=== PATIENT | female | born 1955 | race Native Hawaiian/Other Pacific Islander ===

== ENCOUNTER 2024-11-27 13:31 | Outpatient (AMB) | payer MEDICARE, MEDICAID, SELFPAY ==
--- NOTE | 2024-11-27 13:38 | A.OFFVIS_ITS ---
Intake Visit Reasons: 3 months follow up Accompanied by: Sister Allergies No Known Allergies Allergy (Verified 11/27/24 13:43) Medication List - Last Reconciled 11/27/24 by Hermila Wilcox CNP anastrozole 1 mg PO DAILY atorvastatin 80 mg PO DAILY ezetimibe 10 mg PO DAILY sertraline 25 mg PO DAILY HPI Comments Details: 69-year-old woman with memory problems beginning around 2018, at which time she moved in with her older sister. Memory decline became more noticeable and she started to have some visual and auditory hallucinations after fall resulting in R shoulder fx in 02/2024. She was here with her sister. Symptoms have gotten worse since around 08/2024, at which time she began refusing to take all her medications. The only medication her sister was trying to give her anymore was sertraline 25mg, which she has taken regularly for about 1 month. She sister noted that she was having more visual and auditory hallucinations, speaking to things or people that were not there, which sometimes made her agitated. Sleep at night was okay. No recent falls. COUNT INCLUDES [facility] Medical History (Updated 11/27/24 @ 13:42 by Hermila Wilcox CNP) Alzheimer dementia Review of Systems Const Denies chills, Denies daytime sleepiness, Denies difficulty sleeping, Denies fatigue, Denies fever(s), Denies frequent falls, Denies headache(s), Denies increased appetite, Denies poor appetite, Denies snoring, Denies weakness, Denies weight gain and Denies weight loss Eyes Denies loss of vision ENT Denies vertigo, Denies dizziness, Denies headache(s) and Denies neck pain Card Denies chest pain at rest, Denies chest pain with activity, Denies syncope, Denies leg edema, Denies palpitations, Denies dyspnea and Denies dyspnea on exertion Resp Denies cough, Denies dyspnea, Denies dyspnea on exertion and Denies snoring GI Denies abdominal pain, Denies constipation, Denies heartburn, Denies diarrhea and Denies nausea Denies urinary frequency, Denies urinary incontinence and Denies urinary urgency Musc Denies abnormal gait, Denies back pain, Denies myalgias, Denies arthralgias, Denies neck pain, Denies numbness and Denies tingling Neuro Denies abnormal gait, Denies vertigo, Denies dizziness, Denies syncope, Denies frequent falls, Denies headache(s), Denies lack of coordination, Denies loss of vision, Reports memory loss, Denies numbness, Denies Other visual disturbances, Denies restless legs, Denies seizure-like activity, Denies tingling, Denies paresthesias, Denies tremor(s) and Denies weakness Psych Reports anxiety, Reports depression, Reports auditory hallucinations, Reports memory loss and Reports visual hallucinations Endo Denies fatigue and Denies palpitations Physical Exam Const Other: General Appearance:? normal, in no acute distress. Heart:? S1, S2 normal, no murmurs. Lungs:? clear anteriorly and posteriorly. Musculoskeletal:? normal. Extremities:? no edema. Psych:? alert, as below. Neuro Other: Abnormal Neurological Findings:?MMSE 04/09. She was restless, talking to hers elf, pacing around the office and into the hermosillo. She was unable to tell me her age, birthday, or who she was here with. She was not cooperative with full exam. Mental Status: alert, as below. Cranial Nerves: Pupils are equal, round, and reactive to light. External ocular muscles are intact. Visual stovall are full, no ptosis. Face is symmetrical, no facial weakness or droop. Facial sensations are normal. Tongue protrudes in midline. Palate elevates symmetrically. Shoulder shrugging is normal Motor Examination: Normal muscle tone, bulk and strength. Sensory Exam: ... Coordination: No ataxia. No titubation. Gait Exam: Within normal limits. Extrapyramidal System: No tremor, rigidity with normal facial expressions. No bradykinesia. No bradyphrenia. Normal arm swing and posture. No propulsion or retropulsion. Speech: Normal. MMSE Level of Consciousness: Alert. Orientation: Does not know correct year, month, date, day and season. Does not know correct city, county and state. Does not know correct location and floor. Registration: Able to register 3 objects. Attention: Unable to do serial 7's. Recall: Able to recall 0 out of 3 objects. Language: Normal spontaneous speech, fluency, repetition, naming, comprehension, reading, and writing. Total Score: 1230. Results Reviewed Results Reviewed: 02/26/23 MRI shows mild diffuse atrophy, with slight progression from 07/03/18 02/17/23 EEG low folatge fast record Assessment & Plan Assessment & Plan (1) Alzheimer dementia: Code(s): G30.9 - Alzheimer's disease, unspecified; F02.80 - Dementia in other diseases classified elsewhere, unspecified severity, without behavioral disturbance, psychotic disturbance, mood disturbance, and anxiety Category: Medical Qualifiers: Alzheimer's disease onset: unspecified onset Dementia severity: unspecified severity Dementia behavioral or psychological symptom: with mood disturbance Qualified Code(s): G30.9 - Alzheimer's disease, unspecified; F02.83 - Dementia in other diseases classified elsewhere, unspecified severity, with mood disturbance Plan: Continue sertraline 25mg 1 tablet daily. Start quetiapine 25mg 1/2 tablet twice a day, use/side effects reviewed. Reviewed labs ordered r/o metabolic or infectious process. Orders: Orders UA CC w/rflx Micro + Cult Today F0.83 - Dementia in other diseases classified elsewhere, unspecified severity, with mood disturbance, G30.9 - Alzheimer's disease, unspecified Complete Blood Count Auto Diff Today F0.83 - Dementia in other diseases classified elsewhere, unspecified severity, with mood disturbance, G30.9 - Alzheimer's disease, unspecified Basic Metabolic Panel Today F0.83 - Dementia in other diseases classified elsewhere, unspecified severity, with mood disturbance, G30.9 - Alzheimer's disease, unspecified Medications: New quetiapine 12.5 mg (1/2 x 25 mg) PO BID 30 tabs 2RF 30 days Coding Level of Care Code Est Pt Level 4 (34342) Diagnoses Alzheimer's dementia with mood disturbance, unspecified dementia severity, unspecified timing of dementia onset G30.9; F02.83 Alzheimer's disease onset: unspecified onset Dementia severity: unspecified severity Dementia behavioral or psychological symptom: with mood disturbance
--- OUTSIDE RECORDS SUMMARY | 2024-11-27 14:46 | XMS_ITS | Encounter Summary ---
Author Organization [employer] Address [address] [facility] 7t [place] [address] Care Team Providers Care Bond Analyst Name Role Phone Jaylan Gagnon Unassigned Primary Care Provider U tran Day Bia Unavailable Laura Jacobs Unavailable [phone] Kera Grullon Unavailable Dayton Fraser LL Unavailable Capo Sarmiento [facility] Unavailable Josi Lundberg Primary Care Provider [phone] Yunier Preston MD Unavailable [phone] Encounter Details Date Type Department Care Team (Late st Contact Info) Description 01/27/[address] [address] PcpJaylan Unassigned Social History Tobacco Use Types Packs/Day Years Used Date Smoking Tobacco: Never Passive Smoke Exposure: Never Smokeless Tobacco: Never Alcohol Use Standard Drinks/Week Comments Never 0 (1 standard drink = 0.6 oz pur e alcohol) PHQ-2 Answer Date Recorded Patient Health Questionnaire-2 Score 0 03/29/2022 Housing Stability Answer Date Recorded What is your housing situation today? I have trish quintanilla 01/27/[address] you li ve. Do you have problems with any of the following? None of the above 01/27/2023 Food Insecurity Answer Date Recorded Within the past 12 months, y ou worried that your food would run out before you got money to buy more: Never True 01/27/2023 Within the past 12 months,th e food you bought just didn't last and you didn't have enough money to get more: Never True Transportation Answer Date Recorded In the past 12 months, has l ack of transportation kept you from medical appts, meetings, work or from getting things needed for daily living? No 01/27/2023 Utilities Answer Date Recorded In the past 12 months, has t he electric, gas, oil or water company threatened to shut off services in your home? No 01/27/2023 Depression Answer Date Recorded Patient Health Questionnaire-2 Score 0 03/29/2022 Comments Unknown Sex and Gender Information Value Date Recorded Sex Assigned at Female 03/29/2022 10:50 AM EST Legal Sex Female 8:39 PM EST Gender Identity Female 02/19/2022 8:39 PM EST Sexual Orientation Straight 02/19/2022 8: 39 PM EST documented as of this encounter Plan of Treatment Upcoming Encounters Date Type Department Care Team (Late st Contact Info) Description 12/27/2024 9:15 AM EDT Office Visit [facility] [address] [place] [phone] Capo Sarmiento [address] [address] documented as of this encounter Visit Diagnoses Not on filedocumented in this encounter Care Teams Bond Analyst Relationship Specialty Start Date End Date Jaylan Gagnon Unassigned PCP - General Family Medicine 08/04/22 05/11/23 Josi Lundberg FNP [address] [place] [address] PCP - General Family Medicine 05/12/23 Bia Day [address] [place] [address] 11/24/22 04/12/23 Laura Jacobs [address] [place] [address] 12/14/22 12/13/23 Kera Grullon [address] [place] [address] 01/04/23 10/25/23 Dayton Fraser LLD [address] [place] [address] Dentist 04/14/[address] [place] [address] Dental Varnish Filterer 04/14/23 Yunier Preston MD [address] [place] [address] Ophthalmology 12/07/23 Dr. Li Measurement Specialist 05/25/22 Dr. Hernandez Medical Oncologist 05/25/22 Dr. Duc Rhodes Physical Therapist 05/25/22 Dr. Mihaela Stein [facility] [address] [place] [address] Neurology 01/10/24 documented as of this encounter
--- OUTSIDE RECORDS SUMMARY | 2024-11-27 14:46 | XMS_ITS | Clinical Summary ---
Author Organization [facility] Address [address] [place] [address] Phone Care Team Providers Care Major Assembly Lineman Name Role Phone Josi Lundbergcarter TEJADA Primary Care Provider [phone] Allergies No known active allergies Medications atorvastatin (LIPITOR) 40 MG tablet Take 80 mg by mouth daily. 08/04/2021 Active donepeziL (ARICEPT) 23 mg Tab Take 23 mg by mouth daily. 08/14/2021 Active ezetimibe (ZETIA) 10 mg tablet Take 10 mg by mouth daily. 08/12/2021 Active b complex vitamins capsule Take 1 capsule by mouth daily. Active aspirin 81 mg chewable tablet Take 81 mg by mouth daily. Active calcium carb/vit D3/minerals (CALCIUM-VITAMI N D ORAL) Take by mouth. Active Active Problems Problem Noted Date Diagnosed Date Right lower lobe lung mass 09/17/2021 Assessment & Plan (09/17/2021 9:58 AM EDT): Lung mass concerning for malignancy given previous uterine cancer history. We will begin diagnostic work up with a PET CT and pulmonary function tests. Social History Tobacco Use Types Packs/Day Years Used Date Smoking Tobacco: Never Smokeless Tobacco: Never Alcohol Use Standard Drinks/Week Comments Not Currently 0 (1 standard drink = 0.6 oz pur e alcohol) Education Answer Date Recorded Are you interested in more education? Not on donald e 08/06/2022 Are you concerned about learning? Not on file 08/06/2022 No 08/06/2022 No 08/06/2022 Digital Access Answer Date Recorded No 09/01/2022 No 09/01/2022 Reliable internet access at home? Not on file 09/01/2022 Device with a working camera? Not on file Comments Unknown Sex and Gender Information Value Date Recorded Sex Assigned at Not on file Legal Sex Female 11:49 AM EST Gender Identity Not on file Sexual Orientation Not on file Last Filed Vital Signs Vital Sign Reading Time Taken Comments Blood Pressure 112/68 10/16/2021 8:40 AM EDT Pulse 65 10/16/2021 8:40 AM EDT Temperature 36.8 C (98.2 F) 10/16/2021 8:40 AM EDT Respiratory Rate 16 09/17/2021 9:17 AM EDT Oxygen Saturation 96% 10/16/2021 8:40 AM EDT Inhaled Oxygen Concentration - - Weight 66.2 kg (146 lb) 10/30/2021 10:53 AM EDT Height 152.4 cm (5') 09/17/2021 9:17 AM EDT Body Mass Index 28.51 09/17/2021 9:17 AM EDT Plan of Treatment Health Maintenance Due Date Last Done Comments Adult Td,Tdap Booster 1957 DEPRESSION SCREENING 1969 HEPATITIS C SCREENING 1975 COLOGUARD 2002 COLONOSCOPY 2002 COLORECTAL CANCER SCREENING 2002 FIT TEST 2002 FOBT 2002 SIGMOIDOSCOPY 2002 VIRTUAL COLONOSCOPY 2002 PNEUMOCOCCAL VACCINES (50+ years) (1 of 1 - PCV) 2007 ZOSTER VACCINES (1 of 2) 2007 OSTEOPOROSIS SCREENING INITIAL (ONE-TIME) 2022 COVID-19 VACCINE ( season) 2024 01/04/2024, 01/21/2023, 02/03/2022, Additional history exists MAMMOGRAM 11/14/2025 11/15/2023, 1210/2021, 03/17/2022 LIPID PANEL 05/19/2028 05/19/2023 RSV VACCINE Completed 04/06/2024 SMOKING STATUS SCREENING (Once After 26 Yrs) Completed 05/08/2024 HEPATITIS A VACCINES Aged Out No long er eligible based on patient's age to complete this topic HIB VACCINES Aged Out No longer eligi ble based on patient's age to complete this topic MENINGOCOCCAL VACCINES (ACWY) Aged Out No longer eligible based on patient's age to complete this topic MENINGOCOCCAL VACCINES (B) Aged Out N o longer eligible based on patient's age to complete this topic Medical Devices Not on file Insurance MEDICARE PART A & B [facility] MEDICARE PART A & B [place] [facility] A & [place] [facility] MEDIC[facility] PART A & B Member Subscriber Plan / Payer (Ef fective 2020-) Name:John Campbell Member ID:[id number] Relation to Subscriber:Self Name:John Campbell Subscriber ID:[id number] Payer ID:[id number] Group ID:Not on file Type:Medicare Address: [facility] [employer] [facility] [address] [place] [address] [place] A & B Member Subscriber Plan / Payer (Ef fective 2020-) Name:John Campbell Member ID:[id number] Relation to Subscriber:Self Name:John Campbell Subscriber ID:[id number] Payer ID:[id number] Group ID:Not on file Type:Medicare Address: [facility] [employer] [facility] [address] [place] [address] [place] [address]HEALTH MEDICARE PART A & B [place] PART A & B [facility] Care Teams Major Assembly Lineman Relationship Specialty Start Date End Date Josi Lundberg FNP [address] [place] [address] [email or web address] PCP - General Nurse Practitioner 02/21/24 Additional Source Comments The information contained in this document represents components of the legal health record. It is not the complete legal health record.[facility]
== END 2024-11-27 14:02 | disposition home or self-care (01) ==
LOC: HO.HSM 13:31
PROVIDERS: PCP Family Medicine; Visit Provider Registered Nurse
DX: G30.9 Alzheimer's disease, unspecified (principal); F02.83 Dementia in other diseases classified elsewhere, unspecified severity, with mood disturbance
CPT/HCPCS: 99214

== ENCOUNTER → 2024-11-27 13:31 | Outpatient (BNVA) | payer MEDICARE, MEDICAID, SELFPAY | PROVIDERS: PCP Family Medicine; Visit Provider Registered Nurse | DX: G30.9 Alzheimer's disease, unspecified (principal); F02.83 Dementia in other diseases classified elsewhere, unspecified severity, with mood disturbance; Z79.899 Other long term (current) drug therapy | CPT/HCPCS: 99212 ==

== ENCOUNTER 2024-12-28 09:46 | Outpatient (AMB) | payer MEDICARE, MEDICAID, SELFPAY ==
--- OUTSIDE RECORDS SUMMARY | 2024-12-27 09:15 | XMS_ITS | Encounter Summary ---
Author Organization [employer] Address [address] [facility] 7t [place] [address] Care Team Providers Care Demolition Expert Name Role Phone Dayton Fraser DMD Unavailable Unavailable Capo Sarmiento [facility] Unavailable Josi Lundberg Primary Care Provider [phone] Yunier Preston MD Unavailable [phone] Reason for Visit * Reason Comments Routine Cleaning Dental Exam Encounter Details Date Type Department Care Team (Late st Contact Info) Description 12/27/2024 9:15 AM EDT [facility] [address] [place] [phone] [facility] [address] [place] [address] Social History Tobacco Use Types Packs/Day Years Used Date Smoking Tobacco: Never Passive Smoke Exposure: Never Smokeless Tobacco: Never Alcohol Use Standard Drinks/Week Comments Never 0 (1 standard drink = 0.6 oz pur e alcohol) PHQ-2 Answer Date Recorded Patient Health Questionnaire-2 Score 0 03/29/2022 Alcohol Answer Date Recorded How often do you have a drink containing alcohol ? 0 06/28/2023 How many drinks containing a lcohol do you have on a typical day when you are drinking? 0 06/28/2023 How often do you have six or more drinks on one occasion? 0 06/28/2023 Housing Stability Answer Date Recorded What is your housing situation today? I have trish quintanilla 05/19/[address] you li ve. Do you have problems with any of the following? None of the above 05/19/2023 Food Insecurity Answer Date Recorded Within the past 12 months, y ou worried that your food would run out before you got money to buy more: Never True 05/19/2023 Within the past 12 months,th e food you bought just didn't last and you didn't have enough money to get more: Never True 11/2023 Transportation Answer Date Recorded In the past 12 months, has l ack of transportation kept you from medical appts, meetings, work or from getting things needed for daily living? No 05/19/2023 Intimate Partner Violence Answer Date R ecorded Within the last year, have y ou been afraid of your partner or ex-partner? 2 06/28/2023 Within the last year, have y ou been humiliated or emotionally abused in other ways by your partner or ex-partner? 2 Within the last year, have y ou been kicked, hit, slapped, or otherwise physically hurt by your partner or ex-partner? 2 06/28/2023 Within the last year, have y ou been raped or forced to have any kind of sexual activity by your partner or ex-partner? 2 06/28/2023 Utilities Answer Date Recorded In the past 12 months, has t he electric, gas, oil or water company threatened to shut off services in your home? No 05/19/2023 Depression Answer Date Recorded Patient Health Questionnaire-2 Score 0 05/19/2023 Internet Access Answer Date Recorded Internet Access Q1 Yes 02/10/2024 Internet Access Q2 Not on file 02/10/2024 Comments Unknown Sex and Gender Information Value Date Recorded Sex Assigned at Female 03/29/2022 10:50 AM EST Legal Sex Female 8:39 PM EST Gender Identity Female 02/19/2022 8:39 PM EST Sexual Orientation Straight 02/19/2022 8: 39 PM EST documented as of this encounter Progress Notes * Capo Sarmiento, [facility] - 12/27/2024 9:15 AM EDT Patient presents for prophy PE with Dr Nuñez 06/21/24 SBIRT 09/14/23 Medical history reviewed with sister. Patient has severe dementia cc: Patient/Sister stated that Dr Solano agreed a 3MRC is best, still no SFS but patient and sister are aware of out of pocket payments Dr Cintron stated that risks outweigh the benefits for removal of 1 and 16 Patients sister states that dementia of patient has increased rapidly. She was unable to open forany procedures today. Will have patient schedule back with to see if just a PE will be better. No treatment completed today. *Sister also stated she is no longer seeing Dr Solano because of dementia and will only see him if directed by Dr Nuñez NEXT DENTIST VISIT: PE with Dr Nuñez Recall documented in this encounter Plan of Treatment Scheduled Orders Name Type Priority Associated Diagnoses Orde r Schedule BITEWINGS - 4 RADIOGRAPHIC IMAGES Dental Routine 1 Occurrence s starting 12/27/2024 PERIODIC ORAL EVALUATION - ESTABLISHED PATIENT Dental Routine 1 Occurren cedric starting 12/27/2024 CASE PRESENTATION, DETAILED AND EXTENSIVE TREATMENT PLANNING Dental Routine 1 Occurrences starting 12/27/2024 documented as of this encounter Procedures Procedure Name Priority Date/Time Associated Diagnosis Comments NO CHARGE VISIT Routine 12/27/2024 9:15 AM EDT documented in this encounter Visit Diagnoses Not on filedocumented in this encounter Care Teams Demolition Expert Relationship Specialty Start Date End Date Josi Lundberg FNP [address] [place] [address] PCP - General Family Medicine 05/12/23 Dayton Fraser DMD Dentist 04/14/23 Capo Sarmiento [facility] [address] [place] [address] Dental Lab Manager 04/14/23 Yunier Preston MD [address] [place] [address] Ophthalmology 12/07/23 Dr. Li Harvest Worker 05/25/22 Dr. Hernandez Medical Oncologist 05/25/22 Dr. Duc Rhodes Physical Therapist 05/25/22 Dr. Mihaela Stein [facility] [address] [place] [address] Neurology 01/10/24 documented as of this encounter
--- OUTSIDE RECORDS SUMMARY | 2024-12-28 10:21 | XMS_ITS | Encounter Summary ---
Author Organization [employer] Address [address] [facility] 7t [place] [address] Care Team Providers Care Field Hockey Coach Name Role Phone Jaylan Gagnon Unassigned Primary Care Provider U Laura Thompson Unavailable [phone] Kera Grullon Unavailable Dayton Fraser DMD Unavailable Unavailable Capo Sarmiento [facility] Unavailable Josi Lundberg Primary Care Provider Yunier Preston MD Unavailable [phone] Encounter Details Date Type Department Care Team (Late st Contact Info) Description 05/04/2023 Abstract [facility] [address] [place] [address] Sujit Cintron DDS [address] [place], [place] [id number] Social History Tobacco Use Types Packs/Day Years Used Date Smoking Tobacco: Never Passive Smoke Exposure: Never Smokeless Tobacco: Never Alcohol Use Standard Drinks/Week Comments Never 0 (1 standard drink = 0.6 oz pur e alcohol) PHQ-2 Answer Date Recorded Patient Health Questionnaire-2 Score 0 03/29/2022 Housing Stability Answer Date Recorded What is your housing situation today? I have trish socorro 01/27/[address] you li [...] as of this encounter Plan of Treatment Not on file documented as of this encounter Visit Diagnoses Not on filedocumented in this encounter Care Teams Field Hockey Coach Relationship Specialty Start Date End Date PcpJaylan Unassigned PCP - General Family Medicine 08/04/22 05/11/23 Josi Lundberg FNP [address] [place] [address] PCP - General Family Medicine 05/12/23 Laura Jacobs [address] [place] [address] 12/14/22 12/13/23 Kera Grullon [address] [place] [address] 01/04/23 10/25/23 Dayton Fraser DMD [address] [place] [address] Dentist 04/14/[address] [place] [address] Dental Truck Driver Helper 04/14/23 Yunier Preston MD [address] [place] [address] [place] [address] Ophthalmology 12/07/23 Dr. Li Deli Cook 05/25/22 Dr. Hernandez Medical Oncologist 05/25/22 Dr. Duc Rhodes Physical Therapist 05/25/22 Dr. Mihaela Stein [facility] [address] [place] [address] Neurology 01/10/24 documented as of this encounter
--- OUTSIDE RECORDS SUMMARY | 2024-12-28 10:21 | XMS_ITS | Encounter Summary ---
Author Organization [employer] Address 75 [facility] 7t [place] [address] Care Team Providers Care Operations Inspector Name Role Phone Dayton Fraser DMD Unavailable Unavailable Capo Sarmiento [facility] Unavailable Josi Lundberg Primary Care Provider [phone] Yunier Preston MD Unavailable [phone] Encounter Details Date Type Department Care Team (Late st Contact Info) Description 02/20/2024 Telephone [facility] [address] [place] [address] Josi Lundberg FNP 8 [place], [place] [id number] Social History Tobacco Use Types Packs/Day Years [...] the past 12 months, has t he [employer], gas, oil or water [employer] threatened to shut off services in your [...] PM EST documented as of this encounter Miscellaneous Notes * Telephone Encounter - Tressa Valdovinos LPN - 02/21/2024 11:52 AM EST Spoke to pt [employer] mother. Stated concern for pt in there home. Stated they have called elder servicesabout this and are awaiting call back. Stated pt fired [employer]. Just making provider aware of this . Informed no information can be given as neither IN [employer] or bobbin coil winder mother is on ZULEIKA. * Telephone Encounter - Treasure Tobias - 02/20/2024 5:42 PM EST Pt IN [employer] and the IN [employer] MEMBER s mother called and have some concerns about the Pt living situation and would like to speak to the care team to address these. Call back # [phone] documented in this encounter Plan of Treatment Not on file documented as of this encounter Visit Diagnoses Not on filedocumented in this encounter Care Teams Operations Inspector Relationship Specialty Start Date End Date Josi Lundberg FNP [address] [place] [address] PCP - General Family Medicine 05/12/23 Dayton Fraser DMD Dentist 04/14/23 Capo Sarmiento [facility] [address] [place] [address] Dental Director Of Operations Home Health 04/14/23 Yunier Preston MD [address] [place] [address] Ophthalmology 12/07/23 Dr. Li Furniture Builder 05/25/22 Dr. Hernandez Medical Oncologist 05/25/22 Dr. Duc Rhodes Physical Therapist 05/25/22 Dr. Mihaela Stein [facility] [address] [place] [address] Neurology 01/10/24 documented as of this encounter
--- OUTSIDE RECORDS SUMMARY | 2024-12-28 10:21 | XMS_ITS | Encounter Summary ---
Author Organization [employer] Address [address] [facility] 7t [place] [address] Care Team Providers Care Apartment Maintenance Name Role Phone Dayton Fraser DMD Unavailable Unavailable Capo Sarmiento [facility] Unavailable Josi Lundberg Primary Care Provider Yunier Preston MD Unavailable [phone] Encounter Details Date Type Department Care Team ([facility] st Contact Info) Description 02/20/2024 Orders Only [facility] [address] [place] [phone] Joy Lagunas LPN 102 [place], [place] [phone] Social History Tobacco Use Types Packs/Day Years [...] the past 12 months, has t he [employer], gas, oil or water [employer] threatened to shut off services in your [...] on filedocumented in this encounter Care Teams Apartment Maintenance Relationship Specialty Start Date End Date Josi Lundberg FNP [address] [place] [address] PCP - General Family Medicine 05/12/23 Dayton Fraser DMD Dentist 04/14/23 Capo Sarmiento [facility] [address] [place] [address] Dental Finish Specialist 04/14/23 Yunier Preston MD [address] [place] [address] Ophthalmology 12/07/23 Dr. Li Spiritual Advisor 05/25/22 Dr. Hernandez Medical Oncologist 05/25/22 Dr. Duc Rhodes Physical Therapist 05/25/22 Dr. Mihaela Stein [facility] [address] [place] [address] Neurology 01/10/24 documented as of this encounter
--- OUTSIDE RECORDS SUMMARY | 2024-12-28 10:21 | XMS_ITS | Encounter Summary ---
Author Organization [employer] Address 75 [facility] 7t [place] [address] Care Team Providers Care Butter Fat Tester Name Role Phone Jaylan Gagnon Unassigned Primary Care Provider U Bia Tristan Unavailable Laura Jacobs Unavailable [phone] Kera Grullon Unavailable Dayton Fraser DMD Unavailable Unavailable Capo Sarmiento [facility] Unavailable Josi Lundberg Primary Care Provider [phone] Yunier Preston MD Unavailable [phone] Encounter Details Date Type Department Care Team (Late st Contact Info) Description 01/27/2023 Abstract [facility] [address] [address] PcpJaylan Unassigned Social History Tobacco Use Types Packs/Day Years Used Date Smoking Tobacco: Never Passive Smoke Exposure: Never Smokeless Tobacco: Never Alcohol Use Standard Drinks/Week Comments Never 0 (1 standard drink = 0.6 oz pur e alcohol) PHQ-2 Answer Date Recorded Patient Health Questionnaire-2 Score 0 03/29/2022 Housing Stability Answer Date Recorded What is your housing situation today? I have trishpalomo [place]anilla 01/27/[address] you [...] on filedocumented in this encounter Care Teams Butter Fat Tester Relationship Specialty Start Date End Date Jaylan Gagnon Unassigned PCP - General Family Medicine 08/04/22 05/11/23 Josi Lundberg FNP [address] [place] [address] PCP - General Family Medicine 05/12/23 Bia Day [address] [place] [address] 11/24/22 04/12/23 JacobsLaura 102 [place] [address] 12/14/22 12/13/23 Kera Grullon 119 [place] [address] 01/04/23 10/25/23 Dayton Fraser DMD 119 [facility] [place] [address] Dentist 04/14/23 Capo Sarmiento [facility] 102 [place] [address] Dental Car Hiker 04/14/23 Yunier Preston MD [address] [place] [address] [place] [address] Ophthalmology 12/07/23 Dr. Li Flow Machine Operator 05/25/22 Dr. Hernandez Medical Oncologist 05/25/22 Dr. Duc Rhodes Physical Therapist 05/25/22 Dr. Mihaela Stein [facility] [address] [place] [address] Neurology 01/10/24 documented as of this encounter
--- OUTSIDE RECORDS SUMMARY | 2024-12-28 10:21 | XMS_ITS | Encounter Summary ---
Author Organization [employer] Address [address] [place] [address] 7t [place] [address] Care Team Providers Care Recoverer Name Role Phone Laura Jacobs Unavailable [phone] Dayton Fraser DMD Unavailable Unavailable Capo Sarmiento [facility] Unavailable Josi Lundberg Primary Care Provider Yunier Preston MD Unavailable [phone] Reason for Referral * Imaging (Routine) - Canceled Specialty Diagnoses / Procedures Referred By Herve ni Referred To Contact Radiology Diagnoses Abnormality of left breast on screening mammogram Procedures US Axilla Left (Breast) Josi Lundberg FNP [address] [place] [address] Phone: tel: fax: Referral ID Status Reason Start Date Expiration Date V isits Requested Visits Authorized [id number] Canceled 11/24/2023 11/23/2024 1 1 * Consultation (Routine) - Canceled Specialty Diagnoses / Procedures Referred By Herve ni Referred To Contact Interventional Radiology Diagnoses Abnormality of left breast on screening mammogram Josi Lundberg FNP [address] [place] [address] Phone: tel: fax: Referral ID Status Reason Start Date Expiration Date Visits Requested Visits Authorized [id number] Canceled Specialty Services Required 11/24/2023 11/23/2024 1 1 Encounter Details Date Type Department Care Team (Late st Contact Info) Description 11/24/2023 Orders Only [facility] [address] [place] [address] Josi Lundberg FNP 8 [place] [address] Abnormal mammogram (Primary Dx); Abnormality of left breast on screening mammogram Social History Tobacco Use Types Packs/Day Years [...] Recorded Patient Health Questionnaire-2 Score 0 05/19/2023 Comments Unknown Sex and Gender Information Value Date Recorded Sex Assigned at Female 03/29/2022 10:50 AM EST Legal Sex Female 8:39 PM EST Gender Identity Female 02/19/2022 8:39 PM EST Sexual Orientation Straight 02/19/2022 8: 39 PM EST documented as of this encounter Plan of Treatment Scheduled Orders Name Type Priority Associated Diagnoses Orde r Schedule US Axilla Left (Breast) Imaging Routine Abnormality of left breast on screening mammogram Expected: 11/24/2023 (Approximate), Expires: 11/23/2024 Scheduled Referrals Name Type Priority Associated Diagnoses Order Schedule Referral to Diagnostic Radiology Outpatient Referral Routine Abnormality of left breast on screening mammogram Expected: 11/24/2023 (Approximate), Expires: 11/23/2024 documented as of this encounter Procedures Procedure Name Priority Date/Time Associated Diagnosis Comments BI MAMMOGRAM DIAGNOSTIC LEFT Routine 11/24/2023 2:35 PM EDT documented in this encounter Results * BI Mammogram Diagnostic Left (11/24/2023 2:35 PM EDT) Anatomical Region Laterality Modality Breast Left Mammography 11/24/2023 2:35 PM EDT Narrative 11/24/2023 2:54 PM EDT PROCEDURE: MM Digital Mammo Unilat Left CLINICAL INDICATION: 68 years old Female called back for evaluation of possible one view asymmetry LEFT breast CC view only. COMPARISON: Digital RIGHT mammograms 2019 to a September 29, 2023. TECHNIQUE: Spot compression CC view of the LEFT breast is performed. Full mediolateral view the LEFT breast also obtained. 3D tomosynthesis was utilized. DENSITY: There are scattered areas of fibroglandular density. FINDINGS: Upon compression the apparent asymmetries efface consistent with a confluence of normal structures. IMPRESSION: 1. No mammographic evidence of malignancy. RECOMMENDATION: Annual mammographic screening BI-RADS: 1 (Negative) Lay letter mailed to patient. Computer-aided detection (CAD) was utilized in the interpretation of this study. WSN: [id number] Ordering Physician: Josi Lundberg Dictated By: Carlos Norris MD Dictated Date/Time: 11/24/23 2:51 pm Reviewed By: Carlos Norris MD Signed By: Carlos Norris MD Signed Date/Time: 11/24/23 2:51 pm Transcribed By: SUPRIYA Hand Surgeon Date/Time: 11/24/23 2:46 pm Birads: Procedure Note Donotuseinterpreter, Image - 11/24/2023 PROCEDURE: MM Digital Mammo Unilat Left CLINICAL INDICATION: 68 years old Female called back for evaluation ofpossible one view asymmetry LEFT breast CC view only. COMPARISON: Digital RIGHT mammograms 2019 to a September 29, 2023. TECHNIQUE: Spot compression CC view of the LEFT breast is performed.Full mediolateral view the LEFT breast also obtained. 3D tomosynthesis wasutilized. DENSITY: There are scattered areas of fibroglandular density. FINDINGS: Upon compression the apparent asymmetries efface consistent with aconfluence of normal structures. IMPRESSION: 1. No mammographic evidence of malignancy. RECOMMENDATION: Annual mammographic screening BI-RADS: 1 (Negative) Lay letter mailed to patient. Computer-aided detection (CAD) was utilized in the interpretation of thisstudy. WSN: [id number] Ordering Physician: Josi Lundberg Dictated By: Carlos Norris MD Dictated Date/Time: 11/24/23 2:51 pm Reviewed By: Carlos Norris MD Signed By: Carlos Norris MD Signed Date/Time: 11/24/23 2:51 pm Transcribed By: SUPRIYA Hand Surgeon Date/Time: 11/24/23 2:46 pm Birads: Josi TEJADA IMG BI PROCEDURES Final Result documented in this encounter Visit Diagnoses Diagnosis Abnormal mammogram- Primary Abnormal mammogram, unspecified Abnormality of left breast on screening mammogram documented in this encounter Care Teams Recoverer Relationship Specialty Start Date End Date Josi Lundberg FNP [address] [place] [address] PCP - General Family Medicine 05/12/23 Laura Jacobs 102 [place] [address] 12/14/22 12/13/23 Dayton Fraser DMD 102 [place] [address] Dentist 04/14/23 Capo Sarmiento [facility] [address] [place] [address] Dental Mutual Fund Analyst 04/14/23 Yunier Preston MD [address] [place] [address] Ophthalmology 12/07/23 Dr. Li Conditioner Tumbler 05/25/22 Dr. Hernandez Medical Oncologist 05/25/22 Dr. Duc Rhodes Physical Therapist 05/25/22 Dr. Mihaela Stein [facility] [address] [place] [address] Neurology 01/10/24 documented as of this encounter
--- OUTSIDE RECORDS SUMMARY | 2024-12-28 10:21 | XMS_ITS | Encounter Summary ---
Author Organization [employer] Address 75 [facility] 7t [place] [address] Care Team Providers Care Manager Solution Name Role Phone Laura Jacobs Unavailable [phone] Dayton Fraser DMD Unavailable Unavailable Capo Sarmiento [facility] Unavailable Josi Lundberg Primary Care Provider Yunier Preston MD Unavailable [phone] Encounter Details Date Type Department Care Team (Late st Contact Info) Description 11/28/2023 Orders Only [facility] [address] [place], [place] [phone] Provider, Not In System Social History Tobacco Use Types Packs/Day Years [...] the past 12 months, has t he [employer], gas, oil or water company threatened to [...] on file documented as of this encounter Procedures Procedure Name Priority Date/Time Associated Diagnosis Comments MAMMOGRAPHY Routine 11/15/2023 1:02 PM EDT documented in this encounter Results * Mammography (11/15/2023 1:02 PM EDT) Anatomical Region Laterality Modality Other us Not In System Provider HEALTH MAINTENANCE Edited Result - Final documented in this encounter Visit Diagnoses Not on filedocumented in this encounter Care Teams Manager Solution Relationship Specialty Start Date End Date Jsoi Lundberg FNP [address] [place] [address] PCP - General Family Medicine 05/12/23 Laura Jacobs 102 [place] [address] 12/14/22 12/13/23 Dayton Fraser DMD 102 [place] [address] Dentist 04/14/23 [facility] 102 [place] [address] Dental School Psychologist Assistant 04/14/23 Yunier Preston MD [address] [place] [address] Ophthalmology 12/07/23 Dr. Li Physical Therapy Instructor 05/25/22 Dr. Hernandez Medical Oncologist 05/25/22 Dr. Duc Rhodes Physical Therapist 05/25/22 Dr. Mihaela Stein [facility] [address] [place] [address] Neurology 01/10/24 documented as of this encounter
--- OUTSIDE RECORDS SUMMARY | 2024-12-28 10:21 | XMS_ITS | Encounter Summary ---
Author Organization [employer] Address 75 [facility] 7t [place] [address] Care Team Providers Care Automatic Beading Lathe Operator Name Role Phone Jaylan Gagnon Unassigned Primary Care Provider U Laura Thompson Unavailable [phone] Kera Grullon Unavailable Dayton Fraser DMD Unavailable Unavailable Capo Sarmiento [facility] Unavailable Josi Lundberg Primary Care Provider [phone] Yunier Preston MD Unavailable [phone] Encounter Details Date Type Department Care Team (Late st Contact Info) Description 05/04/2023 Abstract [facility] 102 [place] [address] Sujit Cintron DDS 102 [place], [place] [phone] Social History Tobacco Use Types Packs/Day Years [...] on filedocumented in this encounter Care Teams Automatic Beading Lathe Operator Relationship Specialty Start Date End Date PcpJaylan Unassigned PCP - General Family Medicine 08/04/22 05/11/23 Josi Lundberg FNP 102 [place] [address] PCP - General Family Medicine 05/12/23 Laura Jacobs 102 [place] [address] 12/14/22 12/13/23 Kera Grullon 119 [place] [address] 01/04/23 10/25/23 Dayton Fraser DMD 119 [place] [address] Dentist 04/14/[address] [place] [address] Dental Receivable Executive 04/14/23 Yunier Preston MD [address] [place] [address] [place] [address] Ophthalmology 12/07/23 Dr. Li Fish Warden 05/25/22 Dr. Hernandez Medical Oncologist 05/25/22 Dr. Duc Rhodes Physical Therapist 05/25/22 Dr. Mihaela Stein [facility] [address] [place] [address] Neurology 01/10/24 documented as of this encounter
--- OUTSIDE RECORDS SUMMARY | 2024-12-28 10:22 | XMS_ITS | Encounter Summary ---
Author Organization [employer] Address [address] [place] [address] 7 [place] [address] Care Team Providers Care Division Roadmaster Name Role Phone Jaylan Gagnon Unassigned Primary Care Provider U Bia Tristan Unavailable Laura Jacobs Unavailable [phone] Kera Grullon Unavailable Dayton Fraser DMD Unavailable Unavailable Capo Sarmiento [facility] Unavailable Josi Lundberg Primary Care Provider [phone] Yunier Preston MD Unavailable [phone] Reason for Visit * Reason Onset Date Comments Referral 12/22/2022 Encounter Details Date Type Department Care Team (Late st Contact Info) Description 12/22/[address] [id number] Dallas Baeza FNP Referral Social History Tobacco Use Types Packs/Day Years Used Date Smoking Tobacco: Never Passive Smoke Exposure: Never Smokeless Tobacco: Never Alcohol Use Standard Drinks/Week Comments Never 0 (1 standard drink = 0.6 oz pur e alcohol) PHQ-2 Answer Date Recorded Patient Health Questionnaire-2 Score 0 03/29/2022 Depression Answer Date Recorded Patient Health Questionnaire-2 Score 0 03/29/2022 Comments Unknown Sex and Gender Information Value Date Recorded Sex Assigned at Female 03/29/2022 10:50 AM EST Legal Sex Female 8:39 PM EST Gender Identity Female 02/19/2022 8:39 PM EST Sexual Orientation Straight 02/19/2022 8: 39 PM EST documented as of this encounter Miscellaneous Notes * Telephone Encounter - David Barragan - 12/22/2022 2:05 PM EDT Pt received 3 referrals on 11/29 from Dallas Baeza. The referral for Home Care Medicine specifically, the provider, Karl Sandoval, told the pt that they never received a referral from us. Karl Sandoval told the pt to make the provider (us) aware of this and to see if we could send it again?? CB # is [phone] documented in this encounter Plan of Treatment Not on file documented as of this encounter Visit Diagnoses Not on filedocumented in this encounter Care Teams Division Roadmaster Relationship Specialty Start Date End Date PcpJaylan Unassigned PCP - General Family Medicine 08/04/22 05/11/23 Josi Lundberg FNP 102 [place] [address] PCP - General Family Medicine 05/12/23 Bia Day 102 [place] [address] 11/24/22 04/12/23 Laura Jacobs 102 [place] [address] 12/14/22 12/13/23 Kera Grullon 119 [place] [address] 01/04/23 10/25/23 Dayton Fraser DMD 119 [place] [address] Dentist 04/14/[address] [facility] 102 [place] [address] Dental Personal Care Assistant 04/14/23 Yunier Preston MD [address] [place] [address] Ophthalmology 12/07/23 Dr. Li Rn Hemodialysis 05/25/22 Dr. Hernandez Medical Oncologist 05/25/22 Dr. Duc Rhodes Physical Therapist 05/25/22 Dr. Mihaela Stein [facility] [address] [place] [address] Neurology 01/10/24 documented as of this encounter
--- OUTSIDE RECORDS SUMMARY | 2024-12-28 10:22 | XMS_ITS | Clinical Summary ---
Author Organization [employer] Address [address] [facility] 7t [place] [address] Care Team Providers Care Fresh Food Manager Name Role Phone Dayton Fraser DMD Unavailable Unavailable Capo Sarmiento RD Unavailable Josi Lundberg Primary Care Provider [phone] Yunier Preston MD Unavailable [phone] Allergies No known active allergies Medications * This document contains information received from the source organization and may not represent a complete record from that organization. anastrozole (Arimidex) 1 MG chemo tablet Take 1 mg by mouth in the morning. 2 Active aspirin 81 MG EC tablet daily. 9 Active b complex vitamins capsule Take 1 capsule by mouth in the morning. Active memantine (Namenda) 10 MG tabletIndicatio ns:Alzheimer's Disease Take 1 tablet by mouth 2 times daily. 4 Active atorvastatin (Lipitor) 80 MG tablet Take 1 tablet (80 mg) by mouth Once per day. 90 tablet 3 4 Active Additional Information Patient not taking.Reported on 12/27/2024 ezetimibe (Zetia) 10 MG tablet Take 1 tablet (10 mg) by mouth Once per day. 90 tablet 3 4 Active Additional Information Patient not taking.Reported on 12/27/2024 donepezil (Aricept) 10 MG tablet TAKE 1 TABLET(10 MG) BY MOUTH IN THE MORNING 90 tablet 3 4 Active Additional Information Patient not taking.Reported on 12/27/2024 B Complex Vitamins (B COMPLEX 100 PO) Take 1 tablet by mouth. 2 Active atorvastatin (Lipitor) 80 MG tablet Take 80 mg by mouth Once per day. 2 Active memantine (Namenda) 10 MG tablet Take 10 mg by mouth 2 times daily. 4 Active gabapentin (Neurontin) 300 MG capsule Take 300 mg by mouth. 2 Active oxyCODONE (Roxicodone) 5 MG immediate release tablet Take 5 mg by mouth. 4 Active sertraline (Zoloft) 25 MG tablet Take 25 mg by mouth Once per day. Active QUEtiapine (SEROquel) 25 MG tablet TAKE 1/2 TABLET BY MOUTH TWICE DAILY FOR 30 DAYS 5 Active Active Problems Problem Noted Date Diagnosed Date Dental caries 02/01/2023 Dental abscess 05/24/2022 Right lower lobe lung mass 09/17/2021 Overview (03/29/2022): Last Assessment & Plan: Lung mass concerning for malignancy given previous uterine cancer history. We will begin diagnostic work up with a PET CT and pulmonary function tests. Alzheimer disease 08/12/2021 Solitary pulmonary nodule 08/12/2021 Uterine cancer 01/23/2021 Lymphedema 10/09/2020 Overview (03/30/2022): PT at [facility] w/+ benefit Assessment & Plan (03/30/2022 6:55 PM EST): Improved lower extremity edema with daily compression stockings and night with use of pneumatic pump. Patient friend searching for PATIENT ASSESSMENT COORDINATOR to assist pt at home. . Will refer to [facility] to see if there is staff Support to assist in ADLs and pt use of compression devices to improve LE edema. Cerebrovascular disease 11/21/2018 Overview (03/29/2022): Note: MRI in 2019 showed hx of tiny stroke , pt on statin Mild cognitive impairment 11/21/2018 Overview (03/29/2022): Note: Per Neuro, mild cognitive impairment with hx of tiny stroke evidenced on MRI. Lab work reassurring. Mixed hyperlipidemia 11/21/2018 Acquired absence of both cervix and uterus 05/12 Overview (03/29/2022): Note: Done in 2014 due to cervical cancer Encounters Date Type Department Care Team Description 12/27/2024 9:15 AM EDT Office Visit [facility] [address] [place] [address] Capo Sarmiento RDH 12/05/2024 12:30 PM EDT Community Care Management [facility] [address] [address] Melissa Montejo 10/02/2024 Telephone [facility] [address] [place] [address] Josi Lundberg FNP 09/28/2024 Telephone [facility] [address] [address] Josi Lundberg FNP from Last 3 Months Immunizations Immunization Administration Dates Next Due Influenza High-dose Quadrivalent Preservative Fr ee 01/21/2023 Influenza injectable quadrivalent preservative f ree 02/03/2022,12/18/2020 Influenza, Unspecified 01/11/2020 Moderna Covid-19 Vaccine 12+ 01/21/2023,08/02/19 21 TD (adult), 2 Lf tetanus tox oid, preservative free, adsorbed 11/07/2018 Social History Tobacco Use Types Packs/Day Years Used Date Smoking Tobacco: Never Passive Smoke Exposure: Never Smokeless Tobacco: Never Tobacco Cessation:Counseling Given: Not Answered Alcohol Use Standard Drinks/Week Comments Never 0 [...] Orientation Straight 02/19/2022 8: 39 PM EST Last Filed Vital Signs Vital Sign Reading Time Taken Comments Blood Pressure 90/57 09/25/2024 9:45 AM EDT Pulse 50 09/25/2024 9:45 AM EDT Temperature 36.7 C (98.1 F) 09/25/2024 9:45 AM EDT Respiratory Rate 16 12/07/2023 11:30 AM EDT Oxygen Saturation 98% 09/12/2024 3:22 PM EDT Inhaled Oxygen Concentration - - Weight 63.5 kg (140 lb) 09/12/2024 3:22 PM EDT Height 152.4 cm (5') 09/12/2024 3:22 PM EDT Body Mass Index 27.34 09/12/2024 3:22 PM EDT Plan of Treatment Health Maintenance Due Date Last Done Comments CT Colonography 1957 FIT DNA/Cologuard 1957 FIT 1957 Sigmoidoscopy 1957 Alcohol/Substance Use Screening 1969 Pneumococcal Vaccine: 50+ Years (1 of 1 - PCV) 2007 Zoster Vaccines (1 of 2) 2007 DTaP/Tdap/Td Vaccines (1 - Tdap) 11/08/2018 11/07/2018 FOBT 01/30/2021 01/31/2020 Depression Screening 05/19/2024 05/19/2023, 05/19/19 24 SDOH Screening 05/19/2024 05/19/2023 Mammogram 11/23/2024 11/24/2023, 08/0 09/2023, 11/15/2023, Additional history exists COVID-19 Vaccine ( season) 2024 01/04/2024, 01/21/2023, 02/03/2022, Additional history exists Influenza Vaccine (#1) 2024 , 01/21/2023, 02/03/2022, Additional history exists Dental Oral Exam 12/23/2024 06/21/2024, , 11/03/2022, Additional history exists Dental X-Ray: Bitewings 03/23/2025 03/22/20 24, 07/27/2023, 11/03/2022, Additional history exists Dental Prophylaxis 03/28/2025 09/25/2024, 0 06/21/2024, 03/22/2024, Additional history exists Dental X-Ray: Full Mouth 05/25/2025 05/24/2022, 0304/2018 Tobacco Screening 12/27/2025 12/27/2024 Colonoscopy 06/27/2026 06/27/2021, 06/27/2021 Colorectal Cancer Screening 06/27/2026 Hepatitis C Screening Completed 12/19/2020 RSV Patients and Patients Aged 60 years or older Completed 04/06/2024 HIB Vaccines Aged Out No longer eligi ble based on patient's age to complete this topic HPV Vaccines Aged Out No longer eligi ble based on patient's age to complete this topic Hepatitis A Vaccines Aged Out No long er eligible based on patient's age to complete this topic Hepatitis B Vaccines Aged Out No long er eligible based on patient's age to complete this topic IPV Vaccines Aged Out No longer eligi ble based on patient's age to complete this topic Meningococcal B Vaccine Aged Out No l onger eligible based on patient's age to complete this topic Meningococcal Vaccine Aged Out No luisana rohith eligible based on patient's age to complete this topic RSV under 20 months Aged Out No longe r eligible based on patient's age to complete this topic Rotavirus Vaccines Aged Out No longer eligible based on patient's age to complete this topic Procedures Procedure Name Priority Date/Time Associated Diagnosis Comments NO CHARGE VISIT Routine 12/27/2024 9:15 AM EDT PROPHYLAXIS - ADULT Routine 09/25/2024 9 :45 AM EDT PERIODIC ORAL EVALUATION - ESTABLISHED PATIENT Routine 06/21/2024 8:15 AM EDT BITEWINGS - 4 RADIOGRAPHIC IMAGES Routine 03/22/2024 7:15 AM EST BI MAMMOGRAM DIAGNOSTIC LEFT Routine 11/24/2023 2:35 PM EDT PANORAMIC RADIOGRAPHIC IMAGE Routine 05/24/2022 7:30 AM EST HM COLONOSCOPY Routine 06/27/2021 HM HEPATITIS C ANTIBODY Routine 12/19/2020 OCCULT BLOOD, FECAL, IMMUNOASSAY Routine 01/31/2020 5:05 PM EDT from Last 3 Months or Most Recently Relevant to Health Maintenance Results * BI Mammogram Diagnostic Left (11/24/2023 [...] in the interpretation of this study. WSN: [id number] Ordering Physician: Josi Lundberg Dictated By: Carlos Norris MD Dictated Date/Time: 11/24/23 2:51 pm Reviewed By: Carlos Norris MD Signed By: Carlos Norris MD Signed Date/Time: 11/24/23 2:51 pm Transcribed By: SUPRIYA Library Clerk [employer]alking [employer] Date/Time: 11/24/23 2:46 pm Birads: Procedure Note [...] utilized in the interpretation of thisstudy. WSN: [id number] Ordering Physician: Josi Lundberg Dictated By: Carlos Norris MD Dictated Date/Time: 11/24/23 2:51 pm Reviewed By: Carlos Norris MD Signed By: Carlos Norris MD Signed Date/Time: 11/24/23 2:51 pm Transcribed By: SUPRIYA Library Clerk [employer]alking [employer] Date/Time: 11/24/23 2:46 pm Birads: Josi Lundberg CLIENT ENGAGEMENT SPECIALIST IMG BI PROCEDURES Final Result * Colonoscopy (06/27/2021) Colonoscopy REPEAT IN 5 YEARS Historical Provider HEALTH MAINTENANCE Final Result * Hepatitis C Antibody (12/19/2020) Hepatitis C Antibody Reactive Blood Historical Provider HEALTH MAINTENANCE Final Result * FECAL OCCULT BLOOD, IMMUNOCHEMICAL (01/31/2020 5:05 PM EDT) Fecal Occult Blood, Immunochemical (FIT) [facility] 01/31/2020 5:05 PM EDT Historical Provider LAB BODY FLUIDS AND STOOL S ORDERABLES Final Result Performing Organization Address City/State/[facility] Co de Phone Number [facility] [address] from Last 3 Months or Most Recently Relevant to Health Maintenance Insurance MEDICARE [facility] STAND ADULT DENTAL - HSN FULL (MEDICAID) Care Teams Fresh Food Manager Relationship Specialty Start Date End Date Josi Lundberg FNP [address] [place] [address] PCP - General Family Medicine 05/12/23 Dayton Fraser DMD Dentist 04/14/23 Capo Sarmiento [address] [address] Dental Bean Snapper 04/14/23 Yunier Preston MD [address] [place] [address] Ophthalmology 12/07/23 Dr. Li Payroll Services Analyst 05/25/22 Dr. Hernandez Medical Oncologist 05/25/22 Dr. Duc Rhodes Physical Therapist 05/25/22 Dr. Mihaela Stein [facility] [address] [place] [address] Neurology 01/10/24
--- OUTSIDE RECORDS SUMMARY | 2024-12-28 10:22 | XMS_ITS | Encounter Summary ---
Author Organization [employer] Address [address] [facility] 7t [place] [address] Care Team Providers Care Senior Paralegal Name Role Phone Dayton Fraser DMD Unavailable Unavailable Capo Sarmiento [facility] Unavailable Josi Lundberg Primary Care Provider [phone] Yunier Preston MD Unavailable [phone] Encounter Details Date Type Department Care Team (Late st Contact Info) Description 07/03/2024 Telephone [facility] [address] [place] [address] Josi Lundberg FNP [address] [place], [place] [id number] Social History Tobacco Use Types Packs/Day Years [...] the past 12 months, has t he [employer], gas, oil or water [employer] threatened to shut off services in your [...] encounter Miscellaneous Notes * Telephone Encounter - Candelaria Morin - 07/04/2024 7:33 AM EDT Note faxed * Telephone Encounter - Lizbeth Gustafson - 07/03/2024 4:02 PM EDT Needs an office visit note regarding the lymphedemia please fax to [phone]. Insurance also requires a prescription which will be sent by the [facility] [employer] for provider signature if in agreement with recommendations documented in this encounter Plan of Treatment Not on file documented as of this encounter Visit Diagnoses Not on filedocumented in this encounter Care Teams Senior Paralegal Relationship Specialty Start Date End Date Josi Lundberg FNP [address] [place] [address] PCP - General Family Medicine 05/12/23 Dayton Fraser DMD Dentist 04/14/23 Capo Sarmiento RDH [address] [place] [address] Dental Surgical First Assistant 04/14/23 Yunier Preston MD [address] [place] [address] Ophthalmology 12/07/23 Dr. Li Electrical Tester Battery 05/25/22 Dr. Hernandez Medical Oncologist 05/25/22 Dr. Duc Rhodes Physical Therapist 05/25/22 Dr. Mihaela Stein [facility] [address] [place] [address] Neurology 01/10/24 documented as of this encounter
--- OUTSIDE RECORDS SUMMARY | 2024-12-28 10:22 | XMS_ITS | Encounter Summary ---
Author Organization [facility] Address [address] [place] [address] Phone Care Team Providers Care Open Soaper Tender Name Role Phone Arlette Triana MD Primary Care Provider Josi Lundberg Primary Care Provider [phone] Encounter Details Date Type Department Care Team (Late st Contact Info) Description 05/23/2023 Transcribe Orders [facility] [address] [place] [address] Josi Lundberg FNP [address] [place] [address] [email or web address] Social History Tobacco Use Types Packs/Day Years [...] on file Sexual Orientation Not on file documented as of this encounter Plan of Treatment Not on file documented as of this encounter Visit Diagnoses Not on filedocumented in this encounter Care Teams Open Soaper Tender Relationship Specialty Start Date End Date Arlette Triana MD [address] [place] [address] PCP - General Family Medicine 09/17/21 02/20/24 Josi Lundberg FNP [address] [place] [address] [email or web address] PCP - General Nurse Practitioner 02/21/24 documented as of this encounter Additional Source Comments The information contained in this document represents components of the legal health record. It is not the complete legal health record.[facility]
--- OUTSIDE RECORDS SUMMARY | 2024-12-28 10:22 | XMS_ITS | Encounter Summary ---
Author Organization [facility] Address [address] [place] [address] Phone Care Team Providers Care Physician Practice Manager Name Role Phone Gail Casey NP Primary Care Provider [phone] Arlette Triana MD Primary Care Provider Josi Lundberg Primary Care Provider [phone] Encounter Details Date Type Department Care Team (Late st Contact Info) Description 08/19/2021 Ancillary Orders [facility],Outside Imaging [address] [place] [address] System, Provider Not In, [place] [address] Social History Tobacco Use Types Packs/Day Years Used Date Smoking Tobacco: Never Assessed Comments Unknown Sex and Gender Information Value Date Recorded Sex Assigned at Not on file Legal Sex Female 11:49 AM EST Gender Identity Not on file Sexual Orientation Not on file documented as of this encounter Plan of Treatment Not on file documented as of this encounter Results * CT Chest Outside (No Interpretation) (07/30/2021 12:00 AM EDT) Narrative SYSTEMGENERATED, DOCUMENTATION - 08/19/2021 1:17 PM EDT This study is for PACS storage only and not for interpretation. us Provider Not In System PhD IMG OUTSIDE IMAGING W /OUT INTERPRETATION Final Result documented in this encounter Visit Diagnoses Not on filedocumented in this encounter Care Teams Physician Practice Manager Relationship Specialty Start Date End Date Gail Casey NP [address] [place] [address] [address] [place] [address] PCP - General Family Medicine 03/04/21 09/16/21 Arlette Triana MD [address] [place] [address] PCP - General Family Medicine 09/17/21 02/20/24 Josi Lundberg FNP [address] [place] [address] [email or web address] PCP - General Nurse Practitioner 02/21/24 documented as of this encounter Additional Source Comments The information contained in this document represents components of the legal health record. It is not the complete legal health record.[facility]
--- OUTSIDE RECORDS SUMMARY | 2024-12-28 10:22 | XMS_ITS | Encounter Summary ---
Author Organization [employer] Address [address] [facility] 7t [place] [address] Care Team Providers Care Minister Helper Name Role Phone Dayton Fraser DMD Unavailable Unavailable Capo Sarmiento [facility] Unavailable Josi Lundberg Primary Care Provider [phone] Yunier Preston MD Unavailable [phone] Encounter Details Date Type Department Care Team (Late st Contact Info) Description 07/23/[address] [facility] [address] [place] [address] Josi Lundberg FNP [address] [place], [place] [phone] Social History Tobacco Use Types Packs/Day Years [...] the past 12 months, has t he [employer], gas, oil or water [employer] threatened to shut off services in your [...] encounter Miscellaneous Notes * Telephone Encounter - Jm Humphrey [place] - 08/10/2024 9:00 AM EDT Faxed * Telephone Encounter - Floresita Sy - 07/23/2024 3:26 PM EDT [employer] lm on vmail at 307 pm stating the most recent office note needs an addendum that reads: Bilateral lower lymphedema and needs custom compression garments documented in this encounter Plan of Treatment Not on file documented as of this encounter Visit Diagnoses Not on filedocumented in this encounter Care Teams Minister Helper Relationship Specialty Start Date End Date Josi Lundberg FNP [address] [place] [address] PCP - General Family Medicine 05/12/23 Dayton Fraser DMD Dentist 04/14/23 Capo Sarmiento RDH [address] [place] [address] Dental Rn Circulating 04/14/23 Yunier Preston MD [address] [place] [address] Ophthalmology 12/07/23 Dr. Li Water Service Dispatcher 05/25/22 Dr. Hernandez Medical Oncologist 05/25/22 Dr. Duc Rhodes Physical Therapist 05/25/22 Dr. Mihaela Stein [facility] [address] [place] [address] Neurology 01/10/24 documented as of this encounter
--- OUTSIDE RECORDS SUMMARY | 2024-12-28 10:22 | XMS_ITS | Encounter Summary ---
Author Organization [email or web address] Address [address] [facility] 7t [place] [address] Care Team Providers Care Airport Ramp Supervisor Name Role Phone Dayton Fraser DMD Unavailable Unavailable Capo Sarmiento [facility] Unavailable Josi Lundberg Primary Care Provider [phone] Yunier Preston MD Unavailable [phone] Encounter Details Date Type Department Care Team (Late st Contact Info) Description 03/21/2024 Telephone [facility] [address] [place] [address] Josi Lundberg FNP [address] [place], [place] [phone] Social History Tobacco Use Types Packs/Day Years [...] the past 12 months, has t he [employer], gas, oil or water [employer] threatened to shut off services in your [...] encounter Miscellaneous Notes * Telephone Encounter - Lizbeth Gustafson - 03/21/2024 10:56 AM EST If there are any concerns like missed appointments or unfilled medications etc. Looking in to a report of her shoulder injury in February. Is there anything they can assist with? No response to this message is needed unless you have concerns that you think they can assist with. [phone] documented in this encounter Plan of Treatment Not on file documented as of this encounter Visit Diagnoses Not on filedocumented in this encounter Care Teams Airport Ramp Supervisor Relationship Specialty Start Date End Date Josi Lundberg FNP [address] [place] [address] PCP - General Family Medicine 05/12/23 Dayton Fraser DMD Dentist 04/14/[address] [place] [address] Dental Doping Supervisor 04/14/23 Yunier Preston MD [address] [place] [address] Ophthalmology 12/07/23 Dr. Li Field Gauger 05/25/22 Dr. Hernandez Medical Oncologist 05/25/22 Dr. Duc Rhodes Physical Therapist 05/25/22 Dr. Miahela Stein [facility] [address] [place] [address] Neurology 01/10/24 documented as of this encounter
--- OUTSIDE RECORDS SUMMARY | 2024-12-28 10:22 | XMS_ITS | Encounter Summary ---
Author Organization [facility] Address [address] [place], [place] [phone] Phone Care Team Providers Care Product Development Manager Name Role Phone Arlette Triana MD Primary Care Provider Josi Lundberg Primary Care Provider [phone] Encounter Details Date Type Department Care Team (Late st Contact Info) Description 10/16/2021 Procedure Pass [facility], Ct Scan - [address] [address] Social History Tobacco Use Types Packs/Day Years Used Date Smoking Tobacco: Never Smokeless Tobacco: Never Alcohol Use Standard Drinks/Week Comments Not Currently 0 (1 standard drink = 0.6 oz pur e alcohol) Comments Unknown Sex and Gender Information Value Date Recorded Sex Assigned at Not on file Legal Sex Female 11:49 AM EST Gender Identity Not on file Sexual Orientation Not on file documented as of this encounter Plan of Treatment Not on file documented as of this encounter Visit Diagnoses Not on filedocumented in this encounter Care Teams Product Development Manager Relationship Specialty Start Date End Date Arlette Triana MD [address] [place] [address] PCP - General Family Medicine 09/17/21 02/20/24 Josi Lundberg FNP [address] [place] [address] [email or web address] PCP - General Nurse Practitioner 02/21/24 documented as of this encounter Additional Source Comments The information contained in this document represents components of the legal health record. It is not the complete legal health record.[facility]
--- OUTSIDE RECORDS SUMMARY | 2024-12-28 10:22 | XMS_ITS | Encounter Summary ---
Author Organization [employer] Address [address] [facility] 7t [place] [address] Care Team Providers Care Survey Workers Supervisor Name Role Phone Dayton Fraser DMD Unavailable Unavailable Capo Sarmiento [facility] Unavailable Josi Lundberg Primary Care Provider [phone] Yunier Preston MD Unavailable [phone] Encounter Details Date Type Department Care Team (Late st Contact Info) Description 09/26/2024 Orders Only [facility] [address] [place] [address] Provider, Not In System Social History Tobacco [...] Procedure Name Priority Date/Time Associated Diagnosis Comments CT ABDOMEN PELVIS W CONTRAST Routine 08/28/2024 12:08 PM EDT documented in this encounter Results * CT Abdomen Pelvis w/ Contrast (08/28/2024 12:08 PM EDT) Anatomical Region Laterality Modality Body, Pelvis, Abdomen Computed T omography us Not In System Provider IMG CT PROCEDURES Edited Result - Final documented in this encounter Visit Diagnoses Not on filedocumented in this encounter Care Teams Survey Workers Supervisor Relationship Specialty Start Date End Date Josi Lundberg FNP [address] [place] [address] PCP - General Family Medicine 05/12/23 Dayton Fraser DMD Dentist 04/14/23 Capo Sarmiento [facility] [address] [place] [address] Dental Bowling Pin Refinisher 04/14/23 Yunier Preston MD [address] [place] [address] Ophthalmology 12/07/23 Dr. Li Hand Pleater 05/25/22 Dr. Hernandez Medical Oncologist 05/25/22 Dr. Duc Rhodes Physical Therapist 05/25/22 Dr. Mihaela Stein [facility] [address] [place] [address] Neurology 01/10/24 documented as of this encounter
--- OUTSIDE RECORDS SUMMARY | 2024-12-28 10:22 | XMS_ITS | Encounter Summary ---
Author Organization [employer] Address 75 [facility] 7t [place] [address] Care Team Providers Care Monument Carver Name Role Phone Davey Matthew DDS Primary Care Provider [phone] Lisa Reece Primary Care Provider Unavail able Jaylan Gagnon Unassigned Primary Care Provider U Bia Tristan Unavailable Laura Jacobs Unavailable [phone] Kera Grullon Unavailable Dayton Fraser DMD Unavailable Unavailable Capo Sarmiento [facility] Unavailable Josi Lundberg HOPPER OPERATOR Primary Care Provider [phone] Yunier Preston MD Unavailable [phone] Encounter Details Date Type Department Care Team (Latest Contact Info) Description 11/27/2021 Abstract [facility] CONVERSIONS Dental, Provider, DDS Social History Tobacco Use Types Packs/Day Years [...] on filedocumented in this encounter Care Teams Monument Carver Relationship Specialty Start Date End Date Davey Matthew DDS [address] [place] [address] PCP - General Dentist 02/05/22 02/25/22 Lisa Reece FNP [address] [place] [address] PCP - General Family Medicine 02/26/22 08/03/22 Jaylan Gagnon Unassigned PCP - General Family Medicine 08/04/22 05/11/23 Josi Lundberg FNP 102 [place] [address] PCP - General Family Medicine 05/12/23 Bia Day 102 [place] [address] 11/24/22 04/12/23 Laura Jacobs 102 [place] [address] 12/14/22 12/13/23 Kera Grullon [address] [place] [address] 01/04/23 10/25/23 Dayton Fraser, KAREN [address] [place] [address] Dentist 04/14/[address] [place] [address] Dental Infection Preventionist 04/14/23 Yunier Preston MD [address] [place] [address] Ophthalmology 12/07/23 Dr. Li Seismic Prospecting Observer Helper 05/25/22 Dr. Hernandez Medical Oncologist 05/25/22 Dr. Duc Rhodes Physical Therapist 05/25/22 Dr. Mihaela [facility] [address] [place] [address] Neurology 01/10/24 documented as of this encounter
--- OUTSIDE RECORDS SUMMARY | 2024-12-28 10:22 | XMS_ITS | Encounter Summary ---
Author Organization [employer] Address 75 [facility] 7t [place] [address] Care Team Providers Care Rodding Machine Tender Name Role Phone Davey Matthew DDS Primary Care Provider [phone] Lisa Reece Primary Care Provider Unavail able Jaylan Gagnon Unassigned Primary Care Provider U Bia Tristan Unavailable Laura Jacobs Unavailable [phone] Kera Grullon Unavailable Dayton Fraser DMD Unavailable Unavailable Capo Sarmiento [facility] Unavailable Josi Lundberg RADIOLOGIST DIAGNOSTIC Primary Care Provider [phone] Yunier Preston MD Unavailable [phone] Encounter Details Date Type Department Care Team (Latest Contact Info) Description 07/02/2020 Abstract [facility], Provider, DDS Social History Tobacco [...] on filedocumented in this encounter Care Teams Rodding Machine Tender Relationship Specialty Start Date End Date Davey Matthew DDS [address] [place] [address] PCP - General Dentist 02/05/22 02/25/22 Lisa Reece FNP [address] [place] [address] PCP - General Family Medicine 02/26/22 08/03/22 Jaylan Gagnon Unassigned PCP - General Family Medicine 08/04/22 05/11/23 Josi Lundberg FNP 102 [place] [address] PCP - General Family Medicine 05/12/23 Bia Day 102 [place] [address] 11/24/22 04/12/23 Laura Jacobs 102 [place] [address] 12/14/22 12/13/23 Kera Grullon [address] [place] [address] 01/04/23 10/25/23 Datyon Fraser, KAREN [address] [place] [address] Dentist 04/14/[address] [place] [address] Dental Insurance Agents Supervisor 04/14/23 Yunier Preston MD [address] [place] [address] Ophthalmology 12/07/23 Dr. Li Lead Pressman [employer] 05/25/22 Dr. Hernandez Medical Oncologist 05/25/22 Dr. Duc Rhodes Physical Therapist 05/25/22 Dr. Mihaela Stein [facility] [address] [place] [address] Neurology 01/10/24 documented as of this encounter
--- OUTSIDE RECORDS SUMMARY | 2024-12-28 10:22 | XMS_ITS | Encounter Summary ---
Author Organization [employer] Address 75 [facility] 7t [place] [address] Care Team Providers Care Dry House Tender Name Role Phone Dayton Fraser DMD Unavailable Unavailable Capo Sarmiento [facility] Unavailable Josi Lundberg Primary Care Provider [phone] Yunier Preston MD Unavailable [phone] Reason for Visit * Reason Comments Med Refill Encounter Details Date Type Department Care Team ([facility] Contact Info) Description 05/29/2024 Refill [facility] [address] [place] [id number] Sujit Cintron, DDS 102 [place] [address] Social History Tobacco Use Types Packs/Day Years [...] the past 12 months, has t he [email or web address], gas, oil or water [employer] threatened to shut off services in your [...] on filedocumented in this encounter Care Teams Dry House Tender Relationship Specialty Start Date End Date Josi Lundberg FNP [address] [place] [address] PCP - General Family Medicine 05/12/23 Dayton Fraser DMD Dentist 04/14/23 Capo Sarmiento [facility] 102 [place] [address] Dental Design Coordinator 04/14/23 Yunier Preston MD [address] [place] [address] Ophthalmology 12/07/23 Dr. Li Monitor Car Operator 05/25/22 Dr. Hernandez Medical Oncologist 05/25/22 Dr. Duc Rhodes Physical Therapist 05/25/22 Dr. Mihaela [facility] [address] [place] [address] Neurology 01/10/24 documented as of this encounter
--- OUTSIDE RECORDS SUMMARY | 2024-12-28 10:22 | XMS_ITS | Encounter Summary ---
Author Organization [employer] Address 75 [facility] 7t [place] [address] Care Team Providers Care Penetration Tester Name Role Phone Dayton Fraser DMD Unavailable Unavailable Capo Sarmiento [facility] Unavailable Josi Lundberg Primary Care Provider [phone] Yunier Preston MD Unavailable [phone] Encounter Details Date Type Department Care Team (Late st Contact Info) Description 07/17/2024 Telephone [facility] 102 [place] [address] Josi Lundberg FNP 8 [place], [place] [id number] Social History Tobacco Use Types Packs/Day Years [...] the past 12 months, has t he [employer], gas, oil or water [email or web address] threatened to shut off services in your [...] encounter Miscellaneous Notes * Telephone Encounter - mJ Humphrey [place] - 08/16/2024 12:30 PM EDT All set * Telephone Encounter - Floresita Sy - 07/18/2024 9:21 AM EDT Brenda called this am from [facility] saying the office note needs to be 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 Patient needs garments for both. Please refax to [phone] * Telephone Encounter - Candelaria Morin - 07/17/2024 11:23 AM EDT Addended area highlighted and faxed back again * Telephone Encounter - Floresita Sy - 07/17/2024 11:15 AM EDT Genevieve from [facility] called asking that LM add an addendum to the last office visit stating pt has Lymphadema. Please sign and date and then fax to [phone] documented in this encounter Plan of Treatment Not on file documented as of this encounter Visit Diagnoses Not on filedocumented in this encounter Care Teams Penetration Tester Relationship Specialty Start Date End Date Josi Lundberg FNP [address] [place] [address] PCP - General Family Medicine 05/12/23 Dayton Fraser DMD Dentist 04/14/[address] [facility] 102 [place] [address] Dental Erco Machine Operator 04/14/23 Yunier Preston MD [address] [place] [address] Ophthalmology 12/07/23 Dr. Li Physically Impaired Teacher 05/25/22 Dr. Hernandez Medical Oncologist 05/25/22 Dr. Duc Rhodes Physical Therapist 05/25/22 Dr. Mihaela Stein [facility] [address] [place] [address] Neurology 01/10/24 documented as of this encounter
--- OUTSIDE RECORDS SUMMARY | 2024-12-28 10:22 | XMS_ITS | Encounter Summary ---
Author Organization [employer] Address 75 [facility] 7t [place] [address] Care Team Providers Care Social Media Executive Name Role Phone Davey Matthew DDS Primary Care Provider [phone] Lisa Reece Primary Care Provider Unavail able Jaylan Gagnon Unassigned Primary Care Provider U Bia Tristan Unavailable Laura Jacobs Unavailable [phone] Kera Grullon Unavailable Dayton Fraser DMD Unavailable Unavailable SarmientoDayronin [facility] Unavailable Josi Lundberg PATIENT ACCESS REPRESENTATIVE Primary Care Provider [phone] Yunier Preston MD Unavailable [phone] Encounter Details Date Type Department Care Team (Latest Contact Info) Description 07/20/2018 Abstract [facility] CONVERSIONS Dental, Provider, DDS Social History Tobacco [...] on filedocumented in this encounter Care Teams Social Media Executive Relationship Specialty Start Date End Date Davey Matthew DDS [address] [place] [address] PCP - General Dentist 02/05/22 02/25/22 Lisa Reece FNP [address] [place] [address] PCP - General Family Medicine 02/26/22 08/03/22 Jaylan Gagnon Unassigned PCP - General Family Medicine 08/04/22 05/11/23 Josi Lundberg FNP 102 [place] [address] PCP - General Family Medicine 05/12/23 Bia Day 102 [place] [address] 11/24/22 04/12/23 Laura Jacobs 102 [place] [address] 12/14/22 12/13/23 Kera Grullon [address] [place] [address] 01/04/23 10/25/23 Dayton Fraser, KAREN [address] [place] [address] Dentist 04/14/[address] [place] [address] Dental Construction Plumber 04/14/23 Yunier Preston MD [address] [place] [address] [place] [address] Ophthalmology 12/07/23 Dr. Li Trench Shovel Operator 05/25/22 Dr. Hernandez Medical Oncologist 05/25/22 Dr. Duc Rhodes Physical Therapist 05/25/22 Dr. Mihaela Stein [facility] [address] [place] [address] Neurology 01/10/24 documented as of this encounter
--- OUTSIDE RECORDS SUMMARY | 2024-12-28 10:22 | XMS_ITS | Encounter Summary ---
Author Organization [employer] Address 75 [facility] 7t [place] [address] Care Team Providers Care Pulverizer Mill Operator Name Role Phone Davey Matthew DDS Primary Care Provider [phone] Lisa Reece Primary Care Provider Unavail able Jaylan Gagnon Unassigned Primary Care Provider U Bia Tristan Unavailable Laura Jacobs Unavailable [phone] Kera Grullon Unavailable Dayton Fraser DMD Unavailable Unavailable SarmientoDayronin [facility] Unavailable Josi Lundberg MARINE PAINTER Primary Care Provider [phone] Yunier Preston MD Unavailable [phone] Encounter Details Date Type Department Care Team (Latest Contact Info) Description 06/24/2018 Abstract [facility] CONVERSIONS Dental, Provider, DDS Social History Tobacco [...] on filedocumented in this encounter Care Teams Pulverizer Mill Operator Relationship Specialty Start Date End Date Davey Matthew DDS [address] [place] [address] PCP - General Dentist 02/05/22 02/25/22 Lisa Reece FNP [address] [place] [address] PCP - General Family Medicine 02/26/22 08/03/22 Jaylan Gagnon Unassigned PCP - General Family Medicine 08/04/22 05/11/23 Josi Lundberg FNP 102 [place] [address] PCP - General Family Medicine 05/12/23 Bia Day 102 [place] [address] 11/24/22 04/12/23 Laura Jacobs 102 [place] [address] 12/14/22 12/13/23 Kera Grullon [address] [place] [address] 01/04/23 10/25/23 Dayton Fraser, KAREN [address] [place] [address] Dentist 04/14/[address] [place] [address] Dental Narcotics And/Or Vice Detective 04/14/23 Yunier Preston MD [address] [place] [address] [place] [address] Ophthalmology 12/07/23 Dr. Li Striper Machine 05/25/22 Dr. Hernandez Medical Oncologist 05/25/22 Dr. Duc Rhodes Physical Therapist 05/25/22 Dr. Mihaela Stein [facility] [address] [place] [address] Neurology 01/10/24 documented as of this encounter
--- OUTSIDE RECORDS SUMMARY | 2024-12-28 10:22 | XMS_ITS | Encounter Summary ---
Author Organization [facility] Address [address] [place] [address] Phone Care Team Providers Care Schedule Manager Name Role Phone Arlette Triana MD Primary Care Provider Josi Lundberg Primary Care Provider [phone] Reason for Referral * MRI/CAT Scan - Closed Specialty Diagnoses / Procedures Referred By Contsai t Referred To Contact Radiology Diagnoses Malignant neoplasm of lung, unspecified laterality, unspecified part of lung Procedures NM PET CT Skull Base to Mid Thighs Shravan Syed DO Phone: tel: fax: Referral ID Status Reason Start Date Expiration Date Visits Re quested Visits Authorized [id number] Closed 12/16/2021 12/16/2022 1 1 Encounter Details Date Type Department Care Team (Latest Contact Info) Description 12/16/2021 Transcribe Orders Virtual Department [address] [place] [address] Shravan Syed DO [facility] [address]_[place] [address] Malignant neoplasm of lung, unspecified laterality, unspecified part of lung (Primary Dx) Social History Tobacco Use Types Packs/Day Years [...] documented as of this encounter Results * NM PET CT Skull Base to Mid Thighs (12/17/2021 1:48 PM EDT) Anatomical Region Laterality Modality Positron Emissio n Tomography (PET) Narrative 12/17/2021 12:40 PM EDT [place] PET IMAGING us Shravan Nicolas Christianarlene DO IMG NM PET Final Re sult documented in this encounter Visit Diagnoses Diagnosis Malignant neoplasm of lung, unspecified laterality, unspecified part of lung- Primary Malignant neoplasm of lung, unspecified laterality, unspecified part of lung documented in this encounter Care Teams Schedule Manager Relationship Specialty Start Date End Date Arlette Triana MD [address] [place] [address] PCP - General Family Medicine 09/17/21 02/20/24 Josi Lundberg FNP [address] [place] [address] [email or web address] PCP - General Nurse Practitioner 02/21/24 documented as of this encounter Additional Source Comments The information contained in this document represents components of the legal health record. It is not the complete legal health record.[facility]
--- OUTSIDE RECORDS SUMMARY | 2024-12-28 10:22 | XMS_ITS | Encounter Summary ---
Author Organization [employer] Address 75 [facility] 7t [place] [address] Care Team Providers Care Focusing Machine Operator Name Role Phone Davey Matthew DDS Primary Care Provider [phone] Lisa Reece Primary Care Provider Unavail able Jaylan Gagnon Unassigned Primary Care Provider U Bia Tristan Unavailable Laura Jacobs Unavailable [phone] Kera Grullon Unavailable Dayton Fraser DMD Unavailable Unavailable Capo Sarmiento [facility] Unavailable Josi Lundberg CORN MILLER Primary Care Provider [phone] Yunier Preston MD Unavailable Encounter Details Date Type Department Care Team (Latest Contact Info) Description 06/04/2021 Abstract [facility] CONVERSIONS Dental, Provider, DDS Social History [...] on filedocumented in this encounter Care Teams Focusing Machine Operator Relationship Specialty Start Date End Date Davey Matthew DDS [address] [place] [address] PCP - General Dentist 02/05/22 02/25/22 Lisa Reece FNP [address] [place] [address] PCP - General Family Medicine 02/26/22 08/03/22 Jaylan Gagnon Unassigned PCP - General Family Medicine 08/04/22 05/11/23 Josi Lundberg FNP 102 [place] [address] PCP - General Family Medicine 05/12/23 Bia Day 102 [place] [address] 11/24/22 04/12/23 Laura Jacobs 102 [place] [address] 12/14/22 12/13/23 Kera Grullon [address] [place] [address] 01/04/23 10/25/23 Dayton Fraser, KAREN [address] [place] [address] Dentist 04/14/[address] [place] [address] Dental [employer] [place] [employer] 04/14/23 Yunier Preston MD [address] [address] Ophthalmology 12/07/23 Dr. Li Pole Incisor Operator 05/25/22 Dr. Hernandez Medical Oncologist 05/25/22 Dr. Duc Rhodes Physical Therapist 05/25/22 Dr. Mihaela Stein [facility] [address] [place] [address] Neurology 01/10/24 documented as of this encounter
--- OUTSIDE RECORDS SUMMARY | 2024-12-28 10:22 | XMS_ITS | Clinical Summary ---
Author Organization [facility] Address [address] [place] [address] Phone Care Team Providers Care Stacker Name Role Phone Josi Lundbergcarter TEJADA Primary Care Provider [phone] Allergies No known active allergies Medications atorvastatin [...] 2) 2007 OSTEOPOROSIS SCREENING INITIAL (ONE-TIME) 2022 INFLUENZA VACCINE (#1) 2024 , 01/21/2023, 02/03/2022, Additional history exists COVID-19 VACCINE ( season) 2024 01/04/2024, 01/21/2023, 02/03/2022, Additional history exists MAMMOGRAM 11/14/2025 11/15/2023, 12/0 10/2021, 03/17/2022 LIPID PANEL 05/19/2028 05/19/2023 RSV VACCINE [...] file Insurance MEDICARE PART A & B [facility] MEDICARE PART A & B [place] [facility] [address] [place] [address]HEALTH MEDICARE PART A & [facility] [place] [facility] [place] [facility] [place] Care Teams Stacker Relationship Specialty Start Date End Date Josi Lundberg FNP [email or web address] PCP - General Nurse Practitioner 02/21/24 Additional Source Comments The information contained in this document represents components of the legal health record. It is not the complete legal health record.[facility]
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
== END 2024-12-28 11:49 | disposition home or self-care (01) ==
LOC: HO.HSM 09:47
PROVIDERS: PCP Family Medicine; Visit Provider Registered Nurse
DX: G30.9 Alzheimer's disease, unspecified (principal); F02.83 Dementia in other diseases classified elsewhere, unspecified severity, with mood disturbance
CPT/HCPCS: 99214